=== PATIENT | female | born 1975 | race Caucasian/White ===

== ENCOUNTER 2022-05-13 16:02 | Emergency (ER) | payer OTHER ==
[~2022-05-13] VITALS: Ht 167.6 cm; Wt 83.9 kg
[2022-05-13] MEDS ORDERED: CLEOCIN HCL300 MG PO (16:36)
[2022-05-13] MEDS ORDERED: ULTRAM50 MG PO (16:36)
== END 2022-05-13 17:34 | disposition home or self-care (01) ==
LOC: ED 16:02
DX: H60.01 Abscess of right external ear (principal); G43.909 Migraine, unspecified, not intractable, without status migrainosus; E11.9 Type 2 diabetes mellitus without complications; Z88.8 Allergy status to other drugs, medicaments and biological substances
CPT/HCPCS: 36415; 80048; 85025; 96374; 99283-25